=== PATIENT | female | born 1965 | race Caucasian/White ===

== ENCOUNTER 2017-10-24 13:00 | Emergency (ER) | payer MEDICAID, OTHER ==
--- NOTE | 2017-10-24 14:16 | EDPHY ---
General Time Seen by Provider: 10/24/17 14:06 Narrative: CHIEF COMPLAINT: I cut my finger HISTORY OF PRESENT ILLNESS: Patient presents with complaints of I cut my finger. She states that she was cutting orozco just prior to arrival she accidentally cut the right index finger tip. She states there was significant bleeding to the point that she was concerned. This has stopped with simple pressure. No numbness. No difficulty moving the finger, but she states that she is not fully tried. It is painful when she moves the finger but does not radiate. No injury elsewhere. Tetanus up-to-date less than 5 years ago. No use of anticoagulants. She is on DMARDS for ulcerative colitis. TIME OF INJURY: Less than 1 hr ago TETANUS STATUS: Up-to-date MEDICAL/SURGICAL/SOCIAL HISTORY: Ulcerative colitis. Nonsmoker. Nondiabetic REVIEW OF SYSTEMS: Ten systems reviewed and are negative unless otherwise noted in the HPI EXAMINATION General Appearance: Alert, no distress Head: normocephalic, atraumatic Cardiovascular: Symmetric radial pulses. Brisk cap refill in the fingers the right hand. Neurological: A&O, 2 point sensory symmetric, interossei strength symmetric Skin: Warm and dry, no rash. There is a 1.5 cm curvilinear laceration on the right index finger tuft including the nail. No pulsatile bleeding. No foreign body. Extremities: Tenderness of the right index finger of the laceration. Range of motion of the finger is intact with full flexion extension, including superficialis and profundus. DIFFERENTIAL DIAGNOSES: Including but not limited to laceration, laceration complication, laceration with nail injury, laceration foreign body, laceration with tendon injury MDM: 2:05 p.m. Laceration to the right index finger involving the nail. No pulsatile bleeding. No foreign body. Fully neuro intact. Tetanus up-to-date. I have anesthetize the finger. Proceed with irrigation closure. I do not feel she needs an x-ray at this time. 3:05 p.m. Laceration of the right index finger that did involve the nail. There is no injury to the nail bed. I did excise the remainder of the injured nail fragment. I was able to repair the without difficulty. This was done with digital block and tolerated well. Given that she is on DMARD therapy for ulcerative colitis, I will place her on Keflex prophylaxis. Discussed wound care. We discussed returning here in 7-10 days for suture removal. We discussed notifying her prescribing physician of the injury so that they may monitor wound progression. I have answered all her questions. She is discharged home stable condition. PROCEDURE: Laceration repair Consent: Verbal Location: Right index finger Length of repair: 1.5 cm with involvement of the nail Complexity: Complex Layer involvement: Single Anesthesia: Digital block Irrigation: Extensive Debridement: None Procedure description: Following good anesthesia, the wound was copiously irrigated. Wound bed was explored with a sterile glove, and there is no foreign body noted. Wound borders were approximated well with good hemostasis. Tolerated well without complication. Suture/Staple material: 4-0 Prolene, 4 simple sutures Wound care: Routine as discussed Suture/Staple removal: 7-10 Days PROCEDURE: Digital Block Indication: Finger laceration Consent: Verbal Location: Right index finger Anesthesia: Lidocaine 1% plain, 0.25% Marcaine plain, 5mL Description: Base of the finger was prepped. The above was infused without difficulty. Tolerated well. Good anesthesia. Complications: None SUPERVISION: This patient was independently evaluated without direct involvement of or examination by the attending physician. ED Precautions: Worsening pain. Erythema, edema, cyanosis, pallor, paresthesia or anesthesia. - History Smoking Status: Never smoked - Objective Vital Signs: Initial Vital Signs Temperature (C) 97.9 F 10/24/17 13:02 Heart Rate 90 10/24/17 13:02 Respiratory Rate 18 10/24/17 13:02 Blood Pressure 121/74 H 10/24/17 13:02 O2 Sat (%) 92 10/24/17 13:02 O2 Delivery Mode Room Air Allergies/Adverse Reactions: Penicillins Allergy (Verified 10/24/17 13:02) Sulfa (Sulfonamide Antibiotics) Allergy (Verified 10/24/17 13:02) Home Medications: Medication Instructions Recorded Antivyo 10/24/17 Cephalexin [Keflex (*)] 500 mg PO QID #28 cap 10/24/17 oxyCODONE HCL/ACETAMINOPHEN 1 each PO Q4-6PRN PRN #7 tablet 10/24/17 [Percocet 5-325 mg Tablet] Departure - Departure Disposition: Home, Routine, Self-Care Clinical Impression: Laceration of right index finger with damage to nail Qualifiers: Encounter type: initial encounter Foreign body presence: without foreign body Qualified Code(s): S61.310A - Laceration without foreign body of right index finger with damage to nail, initial encounter Condition: Good Instructions: Care For Your Stitches (ED), Laceration (ED) Additional Instructions: 1. Thin layer of bacitracin once daily for the next 2 days 2. Keep the wound covered while showering for the next 3 days 3. Keflex antibiotic prophylaxis 4. Return here for suture removal in 7-10 days 5. Return here for signs of infection as discussed including warmth, redness, fever, drainage from the site 6. return here for increasing pain surrounding the laceration 7. Do not submerge the wound in any water, hot tub, swimming pool until sutures removed Referrals: Kentrell Levi MD [Medical Doctor] - As per Instructions Physician,Emergency DeptMD [Medical Doctor] - As per Instructions Prescriptions: Cephalexin [Keflex (*)] 500 mg PO QID #28 cap oxyCODONE HCL/ACETAMINOPHEN [Percocet 5-325 mg Tablet] 1 each PO Q4-6PRN PRN #7 tablet PRN Reason: Pain, Breakthrough
[2017-10-24 15:26] VITALS: BP 122/78
== END 2017-10-24 15:26 | disposition home or self-care (01) ==
PROC: 0HQFXZZ Repair Right Hand Skin, External Approach (ICD-10-PCS; principal; 2017-10-24)
DX: S61.310A Laceration without foreign body of right index finger with damage to nail, initial encounter (principal)